=== PATIENT | female | born 1970 | race Two or more races ===

== ENCOUNTER 2021-12-23 09:38 | Inpatient (IN) ==
[2021-12-23 11:02] LABS: Basophils # (auto) 0.02 K/uL (0-0.2); Basophils % (auto) 0.3 %; Eosinophils # (auto) 0.06 K/uL (0-0.50); Eosinophils % (auto) 0.8 %; Hematocrit (blood only) 38.8 % (34.1-44.9); Hemoglobin 13.4 g/dl (12.0-16.0); Immature Granulocytes # (auto) 0.03 K/uL (0.00-0.02); Immature Granulocytes % (auto) 0.4 %; Lymphocytes # (auto) 1.15 K/uL (1.2-3.4); Lymphocytes % (auto) 15.3 %; Mean Corpuscular Hemoglobin 32.9 pg (25.0-34.0); Mean Corpuscular Hgb Conc 34.5 g/dL (32.0-36.0); Mean Corpuscular Volume 95.3 fL (80.0-100.0); Mean Platelet Volume 9.7 fL (9.4-12.3); Monocytes # (auto) 0.23 K/uL (0.24-0.82); Monocytes % (auto) 3.1 %; Neutrophils # (auto) 6.03 K/uL (1.4-6.5); Neutrophils % (auto) 80.1 %; Platelet Count 325 K/uL (130-400); RDW Coefficient of Variation 12.4 % (11.5-14.5); Red Blood Count 4.07 M/uL (3.93-5.22); White Blood Count 7.52 K/ul (4.8-10.8)
[2021-12-23 11:15] LABS: INR 0.9 (0.9-1.1); Partial Thromboplastin Time 26.6 Seconds (21.0-31.0); Prothrombin Time 9.9 Seconds (9.0-12.0)
[2021-12-23 11:21] LABS: Albumin Globulin Ratio 1.3 (0.9-2); BUN Creatinine Ratio 10.6 (10-20); Bilirubin,Total 0.8 mg/dl (0.2-1.0); Calcium 9.2 mg/dl (8.5-10.1); Creatinine Clr Calc Pharmacy 77.2 ml/min; Est GFR (African American) 82.6 ml/min; Est GFR (Non-African American) 71.2 ml/min; Globulin 3.2 gm/dl (2.5-4.0); Potassium 3.6 mmol/L (3.5-5.1); Total Protein 7.2 gm/dl (6.0-8.3)
[2021-12-23] MEDS ORDERED: ASPIRIN CHEW 324 MG PO STA (12:43)
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
[2021-12-23] MEDS ORDERED: LORazepam 2 MG in SYRINGE 1 ML IV ONE (17:30)
[2021-12-23] MEDS ORDERED: GLUCOSAMINE SULFATE 500 MG CAP PO SCH (21:00)
[2021-12-23] MEDS ORDERED: MAGNESIUM OXIDE 400 MG TAB PO SCH (21:00)
[2021-12-23] MEDS ORDERED: CYANOCOBALAMIN (B-12) 500 MCG TABLET PO SCH (21:00)
[2021-12-23] MEDS ORDERED: GADOBUTROL 65ML VIAL IV ONE (21:11)
--- NOTE | 2021-12-23 21:11 | Magnetic Resonance Report ---
MR angio head wo con HISTORY: 51 years-old Female Left upper extremity numbness acute strokelike symptoms COMPARISON: CTA had of same day TECHNIQUE: MRA of the head was obtained utilizing 3-D [id number] sequencing with MIP reformats. A ll measurements were obtained according to NASCET criteria. FINDINGS: No aneurysm, dissection, high-grade stenosis or arterial occlusion. IMPRESSION: Normal exam. ACT 112: Negative or not required by law. The above report was generated using voice recognition software. It may contain grammatical, syntax o r spelling errors. Electronically signed by: Angelito Love M.D. 12/23/2021 9:09 PM
--- NOTE | 2021-12-23 21:13 | Magnetic Resonance Report ---
MR brain wo con HISTORY: 51 years-old Female LUE numbness acute stroke like symptoms COMPARISON: Head CT 12/22/2021 TECHNIQUE: Multiplanar multisequence MRI of the brain was obtained without contrast. FINDINGS: No restricted diffusion. Unremarkable midline structures. No acute intracranial hemorrhage, midline s hift, abnormal extra-axial collection, hydrocephalus or intracranial mass. Mild nonspecific ill-defin ed increased T2/FLAIR signal noted within the white matter of the cerebral hemispheres. Cerebral veno us sinuses and major arterial flow voids appear patent. The skull, orbits and soft tissues are unrema rkable. IMPRESSION: 1. No acute intracranial abnormality. No acute or subacute infarct. 2. Nonspecific ill-defined areas of increased T2/FLAIR signal noted within the white matter. Chronic microvascular ischemic disease, sequela of migraines or a demyelinating process are differential cons iderations. ACT 112: Negative or not required by law. The above report was generated using voice recognition software. It may contain grammatical, syntax o r spelling errors. Electronically signed by: Angelito Love M.D. 12/23/2021 9:12 PM
--- NOTE | 2021-12-24 08:29 | Magnetic Resonance Report ---
MR angio neck wo/w con CLINICAL HISTORY: Left upper extremity numbness, R vert dissection COMPARISON STUDY: CTA of the neck December 22, 2021. TECHNIQUE: Utilizing a 1.5 Trina magnet and dedicated coil unenhanced and contrast-enhanced MRA of th e neck was performed. Intravenous injection of 8 cc of Gadavist was uneventful. FINDINGS: Note is made of moderate to severe short segment stenosis at the origin of the right verteb ral artery, as shown on CTA of December 22, 2021. Otherwise, the vertebral arteries are patent. Ther e is no stenosis within the bilateral common carotid or cervical internal carotid arteries. There is apparent mild irregularity of the bilateral cervical internal carotid arteries. No aneurysm within th e neck is noted. No additional vascular abnormalities are identified. IMPRESSION: 1. 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 A focal dissection is favored given normal appearance of this vessel on n radha CT of July 16, 2021. Atherosclerotic plaque could appear similar but is considered less likely. 2. Apparent mild irregularity of the bilateral cervical internal carotid arteries. This is likely art ifactual. Fibromuscular dysplasia is considered less likely. ACT 112: Negative or not required by law. Electronically signed by: Wilton Baez M.D. 12/24/2021 8:27 AM
[2021-12-24] MEDS ORDERED: ASPIRIN/ALUM/MAGNES/CAL CARB 325 MG TAB PO SCH (09:00)
[2021-12-24] MEDS ORDERED: LINACLOTIDE 145 MCG CAPSULE PO SCH (09:00)
[2021-12-24] MEDS ORDERED: MULTIVITAMIN TAB PO SCH (09:00)
[2021-12-24] MEDS ORDERED: CHOLECALCIFEROL 5,000 UNITS 125 MCG TAB PO SCH (09:00)
--- NOTE | 2021-12-24 12:11 | Hospitalist Progress Note ---
Date of Service December 24, 2021 Assessment & Plan (1) Vertebral artery aneurysm: Plan: Patient is currently without any symptoms, however, initially presented to the emergency department 12/22 with complaints of left-sided numbness weakness. The above symptoms resolved while she was in the emergency department however CT angio showed evidence of suspected vertebral artery aneurysm. Patient was called back to the emergency department for further evaluation. Currently symptom-free however MRI, MRA confirmed possible vertebral artery aneurysm Will obtain 2 D ECHO, hypercoagulation work up Continue ASA per Neurology, appreciate recs Admission and Anticipated Discharge Date Admission Date: December 23, 2021 Subjective patient seen and examined, no new complaints Review of Systems Review of Systems: All systems reviewed are negative, apart from the ones contained in the history. Physical Exam Physical Exam: The patient is awake, alert and oriented 3, well developed and well nourished, normocephalic and atraumatic, lying in bed and in no acute distress. HEENT--PERRL, EOMI, mucous membranes and oropharynx mildly dry Neck--supple. No JVD. No bruits. Thyroid normal, trachea midline, no adenopathy. Heart--normal S1 and S2. No murmurs, rubs or gallops. Lungs--clear bilaterally, no respiratory distress, no accessory muscle use. Abdomen--normal bowel sounds and soft. Mild epigastric and left sided abdominal pain Extremities--no cyanosis or clubbing. No edema. Dermatologic--normal skin turgor, normal color, no abnormal lymph nodes, no rash. Neurologic--cranial nerves II through XII grossly intact. Rheumatologic--normal range of motion. Psychiatric--normal affect. Results & Data Results & Data ([facility]) Vital Signs (Past 12 Hours) Vital Signs Temp Pulse Resp BP Pulse Ox O2 Del Method 12/24/21 07:47 98.2 F 76 16 129/72 98 Room Air 12/24/21 03:29 97.7 F 59 L 18 126/73 96 Room Air PG Care Time/CCT Total # of Minutes Spent Total Time Spent with Patient: Total time spent is greater than 50% in coordination of care (as documented) at patient's floor/unit and/or counseling patient: Coding Level of Care Code 03632 Subseq Hosp Care Lvl 2 Diagnoses Vertebral artery aneurysm I72.6 Time Spent (min) 35
--- NOTE | 2021-12-24 14:48 | XCELERA ---
[id number]
--- NOTE | 2021-12-24 15:52 | Discharge Summary ---
Date of Service December 24, 2021 Admission HPI Per Admitting Provider This is a 51-year-old female who came back to the emergency department today on account of an abnormal radiological image. Patient was here in the emergency department yesterday with complaints of left-sided numbness and tingling and also left leg swelling. While in the emergency department yesterday, a CT scan of the head was done which was essentially within normal limits CTA head and neck were also done. It was initially reported as normal however an updated reading showed evidence of suspected focal narrowing around the origin of the right vertebral artery, suspicious for an aneurysm. With this result patient was called back to the hospital for further evaluation. When I saw her here in the emergency department, she said all her symptoms had resolved however she will be admitted to the hospital for further investigation with imaging studies including MRI MRA. Principal Diagnosis vertebral artery dissection Discharge Exam The patient is awake, alert and oriented 3, well developed and well nourished, normocephalic and atraumatic, lying in bed and in no acute distress. HEENT--PERRL, EOMI, mucous membranes and oropharynx mildly dry Neck--supple. No JVD. No bruits. Thyroid normal, trachea midline, no adenopathy. Heart--normal S1 and S2. No murmurs, rubs or gallops. Lungs--clear bilaterally, no respiratory distress, no accessory muscle use. Abdomen--normal bowel sounds and soft. Mild epigastric and left sided abdominal pain Extremities--no cyanosis or clubbing. No edema. Dermatologic--normal skin turgor, normal color, no abnormal lymph nodes, no rash. Neurologic--cranial nerves II through XII grossly intact. Rheumatologic--normal range of motion. Psychiatric--normal affect. Discharge Data Allergies Allergy/AdvReac Type Severity Reaction Status Date / Time oxycodone [From Percocet] AdvReac Severe "feels Verified 01/30/21 16:01 like bug are crawling under my skin" Consultations 12/23/21 12:45 ED Decision to Admit Stat 12/23/21 16:08 Consult Neurology Routine Ordered Studies 12/23/21 12:44 MR angio head wo con Stat MR angio neck wo/w con Stat MR brain wo con Stat Hospital Course (1) Vertebral artery dissection: Patient is currently without any symptoms, however, initially presented to the emergency department 12/22 with complaints of left-sided numbness weakness. The above symptoms resolved while she was in the emergency department however CT angio showed evidence of suspected vertebral artery dissection. Patient was called back to the emergency department for further evaluation. Currently symptom-free however MRI, MRA confirmed possible vertebral artery dissection 2 D ECHO was normal, hypercoagulation work up in the process Continue ASA per Neurology, appreciate recs (2) Vertebral artery aneurysm: Total Time Total Time Spent Total Time Spent (In Minutes): 35 Discharge Plan Discharge Items Patient Disposition: Home - Self-Care Reason For Visit: STROKE LIKE SYMPTOMS Discharge Diagnosis: vertebral artery dissection Activity: Resume your previous activity Non-emergency contact: Primary Care Provider and Neurologist Call non-emergency contact if: you have any medication questions Follow-up/Referrals: Fady Collazo MD [Primary Care Provider] - Diet: Regular Addtl Attending Provider Instructions: please make appointment to follow up with your neurologist Pending Studies at Discharge: Yes Studies:: hypercoagulation work up Stand-Alone Forms: My [facility] [place], Smoking Cessation Medications and DC Order Prescriptions: New aspirin,buffd-calcium carb-mag [Tri-Buffered Aspirin] 325 mg Tablet 325 mg PO DAILY 90 Days Qty: 90 0RF Continued multivitamin Tablet 1 tab PO DAILY Linzess 145 mcg capsule 145 mcg PO DAILY Qty: 90 3RF magnesium 250 mg tablet 250 mg PO HS cholecalciferol (vitamin D3) 125 mcg (5,000 unit) capsule 125 mcg PO QID Rx Instructions: 4 pills a day eletriptan 20 mg tablet 20 mg PO Q2H PRN (Reason: Migraine Headache) Rx Instructions: do not exceed 4 doses per 24 hrs glucosamine sulfate [Glucosamine] 500 mg Tablet 500 mg PO HS cyanocobalamin (vitamin B-12) 1,000 mcg Tablet, Sublingual 1,000 mcg SUBLINGUAL HS Discharge Orders: Discharge Order (Routine); Ordered 12/24/21 Ordered By: Roland Martin Admission Data Admit Date/Time: 12/23/21 14:15 Attending Provider: Roland Martin Admit Provider: Roland Martin Primary Care Provider: Fady Collazo Other Providers: Barbara Abbott ; Krystin Osorio ; [facility] Coding Level of Care Code D/C DAY MANAGEMENT >30 MINS Diagnoses Vertebral artery dissection I77.74 Vertebral artery aneurysm I72.6 Time Spent (min) 35
--- NOTE | 2021-12-24 17:02 | Progress Notes ---
DATE OF SERVICE: 12/24/2021. SUBJECTIVE: I am seeing the patient in followup of an episode of left arm tingling, which came on after cast pain accompanied by scintillating visual phenomenon and a headache. The patient has a history of chronic migraines since her head injury. CTA of head and neck showed a focal presumed dissection at the origin of the right vertebral artery. This appeared new as she has had a CT of the neck several months ago and this was not seen on vascular imaging. Her MRI of the brain, which I have reviewed, shows chronic ill-defined area of increased T2 FLAIR within the white matter, chronic microvascular ischemic disease, sequelae of migraine or demyelinating process within the differential considerations. The patient has not had any new neurologic symptoms. Reviewing her evaluation, she in 2016 was thought to have a stroke. She was admitted to a hospital in [place]. Soon she had a hypercoagulable state workup. She was not on estrogen-containing control at that time and does not recall if she had a Zio patch. She was supposed to be taking aspirin since then, but had run out of it and [facility]. She has longstanding history of neurologic dysfunction. She has a history of a traumatic brain injury while in the and she indicates to me that in 2011, she was worked up for multiple sclerosis, including having an MRI of the spine and a lumbar puncture. Her echo showed normal LV size and function, EF 60-65. No valvular abnormalities. No ASD, no right to left shunt. Atrial size is normal. Hypercoagulable state workup is pending. Lipids were not drawn. The patient was not reexamined. IMPRESSION AND PLAN: Right vertebral artery dissection. No concerning features suggestive of high risk for recurrent TIA or stroke, i.e., ABCD2 is 2 or less. Recommend discharge on antiplatelet therapy with aspirin 325 mg once a day. I would check her LDL and if elevated, place her on the statin. She will need outpatient assessment of her blood pressure to see if she remains hypertensive. This patient has a history of migraine. We can explore further treatment as an outpatient. It appears she takes eletriptan and I would recommend against that at present. Another option could be Lasmiditan We will perform a Zio patch as an outpatient as we cannot confidently attribute her tingling in her left arm and vision changes and headache to her vertebral artery. That in fact could have been a migrainous accompaniment, which was otherwise typical for her. We will need to obtain prior workup when we see her as an outpatient. Job ID: [id number] [facility] SYSTEMCharlene
[2022-01-01 01:12] LABS: Anti Cardiolipin Ab IgG <2.0 GPL-U/mL; Anti Cardiolipin Ab IgM <2.0 MPL-U/mL; B2 Glycoprotein IgG <2.0 U/mL (<20.0); B2 Glycoprotein IgM <2.0 U/mL (<20.0); PTT LA Screen 35 sec (<=40); Protein S Functional(Activity) 64 % normal (60-140)
== END 2021-12-24 18:10 | disposition home or self-care (01) | DRG 301 ==
LOC: ED 09:38 → 2S 14:15